=== PATIENT | male | born 1975 | race Caucasian/White ===

== ENCOUNTER → 2022-07-30 13:50 | Outpatient (BNVA) | payer MEDICARE, MEDICAID, SELFPAY | PROVIDERS: PCP Family Medicine; Referring Provider Family Medicine; Visit Provider Surgery | DX: K43.6 Other and unspecified ventral hernia with obstruction, without gangrene (principal); R14.0 Abdominal distension (gaseous); K92.1 Melena; F31.9 Bipolar disorder, unspecified; F32.9 Major depressive disorder, single episode, unspecified; Z87.898 Personal history of other specified conditions | CPT/HCPCS: 99202 ==

== ENCOUNTER 2022-08-09 15:01 | Outpatient (REF) | payer MEDICARE, MEDICAID, SELFPAY ==
--- NOTE | ~2022-08-09 | CT_ITS ---
EXAMINATION: CT ABDOMEN AND PELVIS WITHOUT CONTRAST CLINICAL INFORMATION: Ventral hernia COMPARISON: Previous CT of the abdomen and pelvis July 2014 TECHNIQUE: Multidetector volumetric imaging was performed from the superior aspect of the liver through the pubic symphysis. Sagittal and coronal reformatted images were obtained on the technologist's workstation. This CT examination was performed using dose optimization techniques as appropriate, variously including the following: *Automated exposure control *Adjustment of mA and/or kV according to patient size (this includes techniques or standardized protocols for targeted exams where dose is matched to indication/reason for exam; i.e. extremities or head) *Use of iterative reconstruction technique DLP: 699 mGy-cm FINDINGS: LUNG BASES: The visualized lung bases are unremarkable. LIVER, GALLBLADDER, AND BILIARY TREE: Enlarged fatty liver. Normal gallbladder. No focal liver lesion or biliary duct dilatation. PANCREAS: Unremarkable. SPLEEN: Unremarkable. ADRENAL GLANDS: Unremarkable. KIDNEYS AND URETERS: 1 cm cyst in the upper pole of the left kidney. No imaging follow-up needed. BLADDER: Unremarkable. GASTROINTESTINAL TRACT: Stool throughout the colon questionable for constipation. Question mild wall thickening of the terminal ileum/ileitis. The small and large bowel are otherwise unremarkable. The appendix is unremarkable. The stomach is unremarkable. ABDOMINAL WALL: 2 adjacent midline ventral or supraumbilical hernias containing fat, largest measuring 5 cm. These are 4 cm above the umbilicus. Left inguinal hernia containing fat. LYMPH NODES: Normal. VASCULAR: Unremarkable. PELVIC VISCERA: Unremarkable. OSSEOUS STRUCTURES: Unremarkable. CT/CT abdomen pelvis wo IV con IMPRESSION: 2 adjacent midline ventral or supraumbilical hernias containing fat. Left inguinal hernia containing fat. Enlarged fatty liver. Question mild enteritis of the terminal ileum. Large amount of stool in the colon questionable for constipation. Left renal cyst. Fleischner guidelines were followed.
== END 2022-08-09 15:02 | disposition home or self-care (01) ==
LOC: HO.CT 15:01
PROVIDERS: PCP Nurse Practitioner Family; Visit Provider Surgery
DX: K43.6 Other and unspecified ventral hernia with obstruction, without gangrene (principal); K92.1 Melena; R14.0 Abdominal distension (gaseous); K76.0 Fatty (change of) liver, not elsewhere classified; N28.1 Cyst of kidney, acquired; F32.9 Major depressive disorder, single episode, unspecified; Z87.898 Personal history of other specified conditions
CPT/HCPCS: 74176

== ENCOUNTER → 2022-08-21 14:19 | Outpatient (BNVA) | payer MEDICARE, MEDICAID, SELFPAY | PROVIDERS: PCP Nurse Practitioner Family; Visit Provider Surgery | DX: K43.6 Other and unspecified ventral hernia with obstruction, without gangrene (principal); F31.9 Bipolar disorder, unspecified; K92.1 Melena; R14.0 Abdominal distension (gaseous); K42.9 Umbilical hernia without obstruction or gangrene; Z87.898 Personal history of other specified conditions | CPT/HCPCS: 99212 ==

== ENCOUNTER 2022-09-28 13:47 | Outpatient (REF) | payer MEDICARE, MEDICAID, SELFPAY ==
[2022-09-28 14:19] LABS: MANUAL DIFF FLAG NO
[2022-09-28 14:36] LABS: Basophils Absolute Auto 0.1 X10*3/uL (0.0-0.2); Basophils Percent Auto 0.6 % (0-2); Eosinophils Absolute Auto 0.3 X10*3/uL (0.0-0.4); Eosinophils Percent Auto 4.1 % (0-4); Hematocrit 44.2 % (42.0-52.0); Hemoglobin 14.4 g/dl (14.0-18.0); Imm Gran Abs Auto 0.01 X10*3/uL (0.00-0.03); Imm Gran Pct Auto 0.1 % (0.0-0.4); Lymphocytes Absolute Auto 2.8 X10*3/uL (1.2-4.9); Lymphocytes Percent Auto 36.7 % (20-40); Mean Corpuscular HGB Conc 32.6 g/dl (31.0-36.0); Mean Corpuscular Volume 88.9 fL (80.0-98.0); Mean Platelet Volume 10.8 fL (9.4-12.4); Monocytes Absolute Auto 0.7 X10*3/uL (0.1-1.2); Monocytes Percent Auto 8.5 % (2-11); Neutrophils Absolute Auto 3.9 x10*3/uL (2.0-8.3); Platelet Count 194 X10*3/uL (160-400); Red Blood Count 4.97 X10*6/uL (4.60-5.80); Red Cell Distribution Width 13.5 % (11.0-16.0); White Blood Count 7.7 X10*3/uL (4.8-10.8)
[2022-09-28 15:03] LABS: Alanine Aminotransferase 103 U/L (0-40); Albumin Level 4.6 g/dL (3.5-5.0); Alkaline Phosphatase 67 U/L (39-117); Anion Gap 16 (12-20); Aspartate Amino Transferase 65 U/L (5-37); Bilirubin Total 0.4 mg/dL (0.0-1.0); Blood Urea Nitrogen 7 mg/dL (9-16); Calcium 9.7 mg/dL (8.4-10.2); Carbon Dioxide 27 mmol/L (22-29); Chloride 101 mmol/L (96-108); Estimated Glomerular Filt Rate > 60; Glucose Random 103 mg/dL (60-115); Potassium 4.6 mmol/L (3.3-5.1); Sodium 139 mmol/L (135-145); Total Protein 7.3 g/dL (6.5-8.0)
[2022-09-28 15:14] LABS: Estimated Average Glucose 108 mg/dL; Hemoglobin A1c % 5.4 %
== END 2022-09-28 13:48 | disposition home or self-care (01) ==
LOC: HO.LAB 13:47
PROVIDERS: PCP Nurse Practitioner Family; Visit Provider Surgery
DX: K42.9 Umbilical hernia without obstruction or gangrene (principal); K92.1 Melena; R14.0 Abdominal distension (gaseous)
CPT/HCPCS: 36415; 80053; 83036; 85025

== ENCOUNTER → 2022-10-10 12:44 | Outpatient (BNVA) | payer MEDICARE, MEDICAID, SELFPAY | PROVIDERS: PCP Nurse Practitioner Family; Visit Provider Surgery | DX: K43.6 Other and unspecified ventral hernia with obstruction, without gangrene (principal); K42.9 Umbilical hernia without obstruction or gangrene; K92.1 Melena; R10.11 Right upper quadrant pain; R79.89 Other specified abnormal findings of blood chemistry; F11.20 Opioid dependence, uncomplicated; F32.9 Major depressive disorder, single episode, unspecified; Z87.898 Personal history of other specified conditions; F31.9 Bipolar disorder, unspecified | CPT/HCPCS: 99212 ==

== ENCOUNTER 2022-12-04 10:22 | Outpatient (REF) | payer MEDICARE, MEDICAID, SELFPAY ==
--- NOTE | ~2022-12-04 | US_ITS ---
EXAMINATION: US ABDOMEN LIMITED CLINICAL INFORMATION: Right upper quadrant pain. COMPARISON: CT abdomen/pelvis 08/09/2022. TECHNIQUE: Real-time imaging of the right upper quadrant abdominal viscera. FINDINGS: PANCREAS: Normal. LIVER: The liver is normal in size. The liver contour is normal. Increased liver parenchymal echogenicity. No focal hepatic lesion. There is no intrahepatic biliary duct dilatation seen. GALLBLADDER: Normal. The gallbladder is physiologically distended without evidence of stones, sludge, polyps, wall thickening or pericholecystic fluid. COMMON BILE DUCT: Normal in caliber measuring 0.3 cm in diameter. RIGHT KIDNEY: Normal. No hydronephrosis. No renal calculi or focal parenchymal lesions. The kidney measures 11.4 cm in maximum dimension. FREE FLUID: None. US/US abdomen limited IMPRESSION: 1. Increased liver parenchymal echogenicity is nonspecific and could be seen in the setting of hepatic steatosis or hepatocellular disease. Correlate with liver function tests. 2. Otherwise, normal examination.
== END 2022-12-04 10:23 | disposition home or self-care (01) ==
LOC: HO.HMGCX 10:22
PROVIDERS: PCP Nurse Practitioner Family; Visit Provider Surgery
DX: R10.11 Right upper quadrant pain (principal)
CPT/HCPCS: 76705

== ENCOUNTER → 2023-01-03 13:58 | Outpatient (BNVA) | payer MEDICARE, MEDICAID, SELFPAY | PROVIDERS: PCP Nurse Practitioner Family; Referring Provider Nurse Practitioner Family; Visit Provider Surgery | DX: K42.9 Umbilical hernia without obstruction or gangrene (principal); K92.1 Melena; K59.00 Constipation, unspecified; R14.0 Abdominal distension (gaseous); F11.20 Opioid dependence, uncomplicated; F31.9 Bipolar disorder, unspecified; Z87.898 Personal history of other specified conditions | CPT/HCPCS: 99212 ==

== ENCOUNTER → 2023-02-13 13:23 | Outpatient (BNVA) | payer MEDICARE, MEDICAID, SELFPAY | PROVIDERS: PCP Nurse Practitioner Family; Visit Provider Internal Medicine | DX: K75.81 Nonalcoholic steatohepatitis (NASH) (principal); K74.60 Unspecified cirrhosis of liver; R79.89 Other specified abnormal findings of blood chemistry; I10 Essential (primary) hypertension; F11.20 Opioid dependence, uncomplicated; F10.21 Alcohol dependence, in remission | CPT/HCPCS: 99202 ==